=== PATIENT | female | born 2000 | race Caucasian/White ===

== ENCOUNTER → 2023-02-11 | Outpatient (CLI) | payer OTHER ==
[2023-02-11 16:14] LABS: HEMATOCRIT 27.9 % (36.0-47.0); HEMOGLOBIN 8.4 g/dl (12.0-15.5); MEAN CORPUSCULAR HEMOGLOBIN 20.6 pg (27.0-33.0); MEAN CORPUSCULAR HGB CONC 30.1 g/dl (32.0-36.5); MEAN CORPUSCULAR VOLUME 68.4 fl (80.0-96.0); PLATELET COUNT, AUTOMATED 262 10^3/uL (150-450); RED BLOOD COUNT 4.08 10^6/uL (4.00-5.40); WHITE BLOOD COUNT 10.6 10^3/uL (4.0-10.0)
== END ==
LOC: M LAB 14:23
PROVIDERS: ATTEND Obstetrics & Gynecology Obstetrics
DX: Z34.82 Encounter for supervision of other normal pregnancy, second trimester (principal)

== ENCOUNTER → 2023-04-09 | Outpatient (CLI) | payer OTHER ==
[2023-04-09 15:42] LABS: FERRITIN 6.6 NG/ML (7.3-270.7)
== END ==
LOC: M LAB 14:37
PROVIDERS: ATTEND Obstetrics & Gynecology Obstetrics
DX: Z34.03 Encounter for supervision of normal first pregnancy, third trimester (principal); D56.8 Other thalassemias

== ENCOUNTER → 2023-05-02 | Outpatient (CLI) | payer OTHER ==
[2023-05-02 12:35] LABS: ALBUMIN 2.5 G/DL (3.2-5.2); BILIRUBIN,DIRECT 0.1 MG/DL (<0.4); BILIRUBIN,TOTAL 0.6 MG/DL (0.3-1.2); TOTAL PROTEIN 5.9 G/DL (5.7-8.2)
== END ==
LOC: M LAB 11:24
PROVIDERS: ATTEND Obstetrics & Gynecology Obstetrics
DX: Z34.83 Encounter for supervision of other normal pregnancy, third trimester (principal); L29.9 Pruritus, unspecified

== ENCOUNTER 2023-05-10 23:10 | Inpatient (IN) | payer OTHER ==
[~2023-05-10] VITALS: Ht 152.4 cm; Wt 75.7 kg
[2023-05-10 23:26] VITALS: BP 129/80
[2023-05-10] MEDS ORDERED: HOME MED LIST COMPLETE! XX SCH (23:30)
[2023-05-11] VITALS (28 sets, daily range): BP systolic 95–152; BP diastolic 53–99; O2SAT 97–100
[2023-05-11] MEDS ORDERED: LACTATED RINGER'S 1000 ML IV STA (00:13)
[2023-05-11] MEDS ORDERED: METHYLERGONOVINE MALEATE 0.2MG/ML 1ML VIAL IM PRN (00:15)
[2023-05-11] MEDS ORDERED: CARBOPROST TROMETHAMINE 250 MCG/ML AMP IM PRN (00:15)
[2023-05-11] MEDS ORDERED: LIDOCAINE 1% MDV 20ML VIAL INFIL PRN (00:15)
[2023-05-11] MEDS ORDERED: TRANEXAMIC ACID INJection 1,000 MG in NS 100 ML IV PRN (00:15)
[2023-05-11] MEDS ORDERED: OXYTOCIN DRIP 30 UNITS in IV 1 EA IV PRN (00:15)
[2023-05-11 01:04] LABS: HEMATOCRIT 30.1 % (36.0-47.0); HEMOGLOBIN 9.2 g/dl (12.0-15.5); MEAN CORPUSCULAR HEMOGLOBIN 20.5 pg (27.0-33.0); MEAN CORPUSCULAR HGB CONC 30.6 g/dl (32.0-36.5); MEAN CORPUSCULAR VOLUME 67.2 fl (80.0-96.0); PLATELET COUNT, AUTOMATED 293 10^3/uL (150-450); RED BLOOD COUNT 4.48 10^6/uL (4.00-5.40); WHITE BLOOD COUNT 15.2 10^3/uL (4.0-10.0)
[2023-05-11] MEDS ORDERED: NALOXONE INJ 0.4MG/1ML VIAL IV PRN (02:00)
[2023-05-11] MEDS ORDERED: diphenhydrAMINE 50MG/ML VIAL IV PRN (02:00)
[2023-05-11] MEDS ORDERED: EPIDURAL/PCA KEYS XX PRN (02:00)
[2023-05-11] MEDS ORDERED: ONDANSETRON 4MG 2ML VIAL IV PRN ×2 (02:00→12:10)
[2023-05-11] MEDS ORDERED: LR 500 ML IV PRN (02:00)
[2023-05-11] MEDS: FENTANYL/ROPIVACAINE/NACL BAG 100 ML EPIDURAL SCH ×2 (02:21→09:52)
[2023-05-11] MEDS: LR 1,000 ML IV SCH ×2 (03:03→09:51)
[2023-05-11] MEDS: ePHEDrine SULFATE 25 MG/5 ML(5MG/ML) SYRINGE IVP PRN ×3 (03:46→03:53)
[2023-05-11] MEDS: PRENATAL VITAMINS CHEWABLE TABLET PO SCH (09:00)
[2023-05-11] MEDS ORDERED: OXYTOCIN DRIP 30 UNITS in IV 1 EA IV SCH (12:10)
[2023-05-11] MEDS ORDERED: IBUPROFEN 600MG TAB PO PRN (12:10)
[2023-05-11] MEDS ORDERED: DIBUCAINE 1% OINTMENT 30GM TOP PRN (12:10)
[2023-05-11] MEDS ORDERED: LR 1,000 ML IV SCH (12:10)
[2023-05-11] MEDS ORDERED: RHOGAM 300MCG (1500IU) INJ IM SCH (12:10)
[2023-05-11] MEDS ORDERED: DOCUSATE SODIUM 100MG CAPSULE PO PRN (12:10)
[2023-05-11] MEDS ORDERED: ANUSOL HC CREAM 30GM TOP PRN (12:10)
[2023-05-11] MEDS: ACETAMINOPHEN TAB 650MG DOSE (2X325MG) PO PRN (14:01)
[2023-05-11] MEDS: IBUPROFEN 800 MG TAB PO PRN (20:38)
[2023-05-12 05:45] VITALS: BP 122/61; O2SAT 98
[2023-05-12] MEDS: ACETAMINOPHEN 500 MG TAB PO PRN ×2 (07:30→17:45)
[2023-05-12] MEDS: PRENATAL VITAMINS CHEWABLE TABLET PO SCH (07:30)
[2023-05-12] MEDS: IBUPROFEN 800 MG TAB PO PRN (14:20)
[2023-05-12 18:00] VITALS: BP 132/88; O2SAT 100
[2023-05-12] MEDS: ACETAMINOPHEN TAB 650MG DOSE (2X325MG) PO PRN (23:09)
[2023-05-13 06:00] VITALS: BP 130/76; O2SAT 98
[2023-05-13] MEDS: ACETAMINOPHEN 500 MG TAB PO PRN (06:44)
[2023-05-13] MEDS ORDERED: MEASLES,MUMPS,RUBELLA VACCINE INJ (MMR-II) SC.IMMUN ONE (09:00)
[2023-05-13] MEDS: PRENATAL VITAMINS CHEWABLE TABLET PO SCH (09:02)
[2023-05-13] MEDS ORDERED: HOME MED LIST COMPLETE! XX SCH (10:00)
[2023-05-13] MEDS ORDERED: PRENCHW PO (11:18)
[2023-05-13] MEDS ORDERED: IBUP80TA PO (11:18)
[2023-05-13] MEDS ORDERED: ACET-683 PO (11:18)
== END 2023-05-13 14:55 | disposition home or self-care (01) | DRG 807 ==
LOC: M LDO 23:10 → M LDI 05-11 00:08 → M OBS 05-11 14:56
PROVIDERS: ADMIT Advanced Practice Midwife; ATTEND Obstetrics & Gynecology
PROC: 10E0XZZ Delivery of Products of Conception, External Approach (ICD-10-PCS; principal; 2023-05-11)
DX: O69.1XX0 Labor and delivery complicated by cord around neck, with compression, not applicable or unspecified (principal); Z37.0 Single live birth; Z3A.38 38 weeks gestation of pregnancy

== ENCOUNTER 2023-06-18 20:16 | Emergency (ER) | payer OTHER ==
[~2023-06-18] VITALS: Ht 152.4 cm; Wt 63.8 kg
[~2023-06-18 20:16] MED LIST: ACET-683 PO; IBUP80TA PO; PRENCHW PO
[2023-06-18 20:17] VITALS: BP 133/74; TEMP 98.6; O2SAT 98
[2023-06-18 22:47] LABS: BASO % 0.4 % (0.0-1.0); EOS # 0.2 10^3/uL (0.0-0.5); EOS % 2.5 % (0.0-3.0); HCG, SERUM QUALITATIVE NEGATIVE (NEGATIVE); HEMOGLOBIN 11.1 g/dl (12.0-15.5); LYMPH % 39.2 % (24.0-44.0); MEAN CORPUSCULAR HEMOGLOBIN 20.2 pg (27.0-33.0); MEAN CORPUSCULAR HGB CONC 30.8 g/dl (32.0-36.5); MEAN CORPUSCULAR VOLUME 65.5 fl (80.0-96.0); MONO # 0.5 10^3/uL (0.0-0.8); NEUTROPHILS # 3.8 10^3/uL (1.5-8.5); NEUTROPHILS % 50.8 % (36.0-66.0); PLATELET COUNT, AUTOMATED 287 10^3/uL (150-450); WHITE BLOOD COUNT 7.6 10^3/uL (4.0-10.0)
[2023-06-18 22:49] LABS: BLOOD UREA NITROGEN 9 MG/DL (9-23); CALCIUM LEVEL 9.1 MG/DL (8.5-10.1); CARBON DIOXIDE LEVEL 26 MMOL/L (20-31); CHLORIDE LEVEL 106 MMOL/L (98-107); CREATININE FOR GFR 0.71 MG/DL (0.55-1.30); GLUCOSE, FASTING 89 MG/DL (60-100); POTASSIUM SERUM 3.9 MMOL/L (3.5-5.1); SODIUM LEVEL 140 MMOL/L (136-145)
== END 2023-06-19 00:39 | disposition home or self-care (01) ==
LOC: M ED 20:16
DX: N93.8 Other specified abnormal uterine and vaginal bleeding (principal)

== ENCOUNTER 2023-07-10 23:11 | Emergency (ER) | payer OTHER ==
[~2023-07-10] VITALS: Ht 152.4 cm; Wt 63.0 kg
[2023-07-10 23:12] VITALS: BP 142/77; TEMP 96.7; O2SAT 100
[2023-07-11] MEDS ORDERED: BENZONATATE 100MG CAPSULE PO ONE (00:25)
[2023-07-11] MEDS ORDERED: ALBUTEROL 90 MCG/ACT 8GM HFA INHALER INH ONE (00:25)
[2023-07-11] MEDS ORDERED: BENZ200C70 PO (00:28)
[2023-07-11] MEDS ORDERED: VENTAER INH (00:28)
== END 2023-07-11 00:41 | disposition home or self-care (01) ==
LOC: M ED 23:11
DX: J06.9 Acute upper respiratory infection, unspecified (principal); B34.8 Other viral infections of unspecified site; J98.01 Acute bronchospasm